=== PATIENT | male | born 1955 | race Caucasian/White ===

== ENCOUNTER 2019-09-07 15:16 | Inpatient (IN) | payer OTHER ==
[2019-09-07 18:15] LABS: Basophils % (Auto) 0.8 % (0.0-1.8); Eosinophils # (Auto) 0.1 K/mm3 (0.0-0.4); Eosinophils % (Auto) 1.8 % (0.0-4.3); Hematocrit 39.2 % (35.5-45.6); Hemoglobin 13.7 gm/dl (11.8-15.2); Lymphocytes # (Auto) 1.5 K/mm3 (1.2-5.4); Lymphocytes % (Auto) 27.9 % (13.4-35.0); Mean Corpuscular HGB Conc 35 % (32-34); Mean Corpuscular Volume 97 fl (84-94); Monocytes # (Auto) 0.6 K/mm3 (0.0-0.8); Monocytes % (Auto) 10.5 % (0.0-7.3); Platelet Count 234 K/mm3 (140-440); Red Blood Count 4.05 M/mm3 (3.65-5.03); Red Cell Distribution Width 13.4 % (13.2-15.2)
--- NOTE | 2019-09-07 18:17 | Consultation ---
History of Present Illness History of present illness: [facility] Date of Service:09/07/2019 17:38:19 Impression: RO Acute Ischemic Stroke Comments: dizziness, Right leg weakness R/O stroke Metrics: Last Known Well: 09/07/2019 15:15:00 [facility] Notification Time: 09/07/2019 17:37:22 Arrival Time: 09/07/2019 15:16:00 Stamp Time: 09/07/2019 17:38:19 Time First Login Attempt: 09/07/2019 17:41:23 Video Start Time: 09/07/2019 17:41:23 Symptoms: syncope, headache NIHSS Start Assessment Time: 09/07/2019 17:52:19 Patient is not a candidate for tPA. Patient was not deemed candidate for tPA thrombolytics because of Extensive discussion with pt and his on the phone about TPA and they did not want to proceed with TPA due to bleeding risk.. Video End Time: 09/07/2019 18:11:23 CT head showed no acute hemorrhage or acute core infarct. Advanced imaging was not obtained as the presentation was not suggestive of Large Vessel Occlusive Disease. Radiologist was not called back for review of advanced imaging because Not obtained. ER Physician notified of the decision on thrombolytics management on 09/07/2019 18:11:24 Our recommendations are outlined below. Recommendations: Activate Stroke Protocol Admission/Order Set Stroke/Telemetry Floor Neuro Checks Bedside Swallow Eval DVT Prophylaxis IV Fluids, Normal Saline Head of Bed Below 30 Degrees Euglycemia and Avoid Hyperthermia (PRN Acetaminophen) Start Antiplatelet Therapy Daily Recommended Scan: MRI Head Lipid Panel to Be Obtained, if Not Done in the Last Three Months Therapies: Physical Therapy, Occupational Therapy, Speech Therapy Assessment When Applicable Dysphaghia Screen: Swallow Evaluation, Bedside DVT prophylaxis: Choice of Primary Team Disposition: Follow up with Teleneurology Follow up Sign Out: Discussed with Emergency Department Provider History of Present Illness: Patient is a 64 year old Male. Patient was brought by EMS for symptoms of syncope, headache 64 YO M with h/o psychiatric illness who is involuntarily committed to a psych facility presented with dizziness and a fall. he started having a headache but states that the nurses at the facility would not listen to him and he felt dizzy and fell and hit his head. On arrival to ER here he was initially moving everything but then slowly started developing weakness in the right leg now he can not move at all. CT head showed no acute hemorrhage or acute core infarct. Examination: 1A: Level of Consciousness - Alert; keenly responsive+ 0 1B: Ask Month and Age - Both Questions Right+ 0 1C: Blink Eyes & Squeeze Hands - Performs Both Tasks+ 0 2: Test Horizontal Extraocular Movements - Normal+ 0 3: Test Visual Rankin - No Visual Loss+ 0 4: Test Facial Palsy (Use Grimace if Obtunded) - Normal symmetry+ 0 5A: Test Left Arm Motor Drift - No Drift for 10 Seconds+ 0 5B: Test Right Arm Motor Drift - No Drift for 10 Seconds+ 0 6A: Test Left Leg Motor Drift - No Drift for 5 Seconds+ 0 6B: Test Right Leg Motor Drift - No Effort Against [place]+ 3 7: Test Limb Ataxia (FNF/Heel-Rey) - No Ataxia+ 0 8: Test Sensation - Mild-Moderate Loss: Can Sense Being Touched+ 1 9: Test Language/Aphasia - Normal; No aphasia+ 0 10: Test Dysarthria - Normal+ 0 11: Test Extinction/Inattention - No abnormality+ 0 NIHSS Score:4 Patient was informed the Neurology Consult would happen via TeleHealth consult by way of interactive audio and video telecommunications and consented to receiving care in this manner. Due to the immediate potential for life-threatening deterioration due to underlying acute neurologic illness, I spent 35 minutes providing critical care. This time includes time for face to face visit via telemedicine, review of medical records, imaging studies and discussion of findings with providers, the patient and/or family. Dr Vignesh Rueda [facility] Medications and Allergies Allergies Allergy/AdvReac Type Severity Reaction Status Date / Time No Known Allergies Allergy Verified 09/07/19 15:37 Physical Examination - Vital Signs Vital Signs: Vital Signs Temp Pulse Resp BP Pulse Ox 98.5 F 76 16 147/81 98 09/07/19 15:37 09/07/19 15:37 09/07/19 15:37 09/07/19 15:37 09/07/19 15:37 Results - Laboratory Findings CBC and BMP: 09/07/19 18:06 Abnormal Lab Findings: Abnormal Labs 09/07/19 18:06 MCV 97 H MCH 34 H MCHC 35 H Floyd % (Auto) 10.5 H
--- NOTE | 2019-09-07 18:21 | Cat Scan Report ---
Nonenhanced CT scan of the brain: INDICATION / CLINICAL INFORMATION: 64 years Male; Stroke symptoms. TECHNIQUE: Routine CT head without contrast. All CT scans at this location are performed using CT dos e reduction for ALARA by means of automated exposure control. COMPARISON: None. FINDINGS: BRAIN / INTRACRANIAL CONTENTS: I do not see intracerebral hemorrhage or stroke mimics. No acute hemorrhage, mass effect, midline shift, hydrocephalus, or acute, large territorial infarct. Mild cortical involution is seen.. Normal brain volume and ventricular/sulcal size for age. No signif icant white matter abnormality. CRANIOCERVICAL JUNCTION: No significant abnormality. ORBITS: No significant abnormality of visualized orbits. SINUSES / MASTOIDS: Ethmoid air cells are opacified anteriorly bilaterally more on the left side. Muc osal thickening is seen in the inferior maxillary sinuses bilaterally more on the left side. ADDITIONAL FINDINGS: I do not see intracranial sequela from the trauma. IMPRESSION: I do not see intracerebral hemorrhage This exam was performed as part of a code stroke protocol. The exam was completed at [facility] on 09/07/2019 5:10 PM. The exam was reviewed at 5:12 PM and ER physician was notified at 5:14 PM. Signer Name: Marvin Schmidt MD Signed: 09/07/2019 6:16 PM Workstation Name: [email or web address]
--- NOTE | 2019-09-07 18:23 | Cat Scan Report ---
Exam: CT cervical spine History: fall, mild neck pain; Technique: Contiguous thin cut axial images obtained through the cervical spine. Sagittal and gupta l reconstructions performed by the technologist. All CT scans at this location are performed using CT dose reduction for ALARA by means of automated exposure control. Findings: No priors. There is no evidence of fracture or traumatic subluxation. I do not see vertebral compression fractur e. Prevertebral space is normal. In the transverse images, I do not see fracture involving the bony c anal. Vertebral bodies are normal in height and alignment. Disc spaces are narrowed at C3-C4, C4-C5 and C5-C6 levels. Bony spur is seen at C5-C6 disc level exte nding bilaterally narrowing the neural foramina. At C6-C7 disc level, bony spur is seen more towards the right side narrowing the right neural foramen. No significant degenerative change seen in the uncinate or facet joints. Surrounding soft tissues are grossly normal. Impression: No signs of acute bony trauma to the cervical spine. Signer Name: Marvin Schmidt MD Signed: 09/07/2019 6:19 PM Workstation Name: [id number]
[2019-09-07 18:29] LABS: Partial Thromboplastin Time 26.2 Sec. (24.2-36.6); Thrombin Time 15.3 Sec. (15.1-19.6)
[2019-09-07 18:36] LABS: Creatine Kinase MB < 1.0 ng/mL (0.0-4.0)
--- NOTE | 2019-09-07 18:44 | Emergency Department Report ---
ED Neuro Deficit HPI - General Chief Complaint: Syncope Stated Complaint: SYNCOPE/FALL Time Seen by Provider: 09/07/19 16:54 Source: patient Mode of arrival: Ambulatory Limitations: No Limitations - History of Present Illness Initial Comments: 64-year-old male with a past medical history of depression presents to the hospital from [facility] for syncope. Patient states he was admitted yesterday for acute alcohol intoxication. Patient denies daily alcohol intake. Patient expresses frustration that the [facility] or staff has not l istened to his concerns about his URI symptoms. Patient states he's been having sneezing, coughing, and phlegm production with generalized melees since yesterday. Symptoms worsened today. No documented fever but patient reports feeling feverish and having chills. Patient states he was seen today by provider who gave him several meds including an antibiotic for his illness. Patient continued to feel bad. While ambulating he felt lightheaded and passed out. Patient complains of a frontal headache today that started prior to passing out that is rated moderate to severe, constant, throbbing, associated lightheadedness and blurred distance vision. Patient states he typically wears glasses for reading only. Even though patient denies daily alcohol use he has been placed on a Tranexene taper at [place]. Patient spent a lot of time complaining about his care at [facility]. - Related Data Home Medications: Home Medications Medication Instructions Recorded Confirmed Last Taken Benzonatate [Tessalon Perles] 200 mg PO TID 09/07/19 09/07/19 Unknown Folic Acid [Folvite] 1 mg PO QDAY 09/07/19 09/07/19 Unknown Multivitamin [One Daily 1 each PO DAILY 09/07/19 09/07/19 Unknown Multivitamin] Thiamine [Vitamin B-1] 100 mg PO QDAY 09/07/19 09/07/19 Unknown Zithromax 250 mg PO DAILY 09/07/19 09/07/19 Unknown Allergies/Adverse Reactions: Allergies Allergy/AdvReac Type Severity Reaction Status Date / Time No Known Allergies Allergy Verified 09/07/19 15:37 ED Review of Systems ROS: Stated complaint: SYNCOPE/FALL Other details as noted in HPI Comment: All other systems reviewed and negative ED Past Medical Hx - Past Medical History Previous Medical History?: Yes Hx Psychiatric Treatment: Yes (depression) - Surgical History Past Surgical History?: No - Social History Smoking Status: Never Smoker Substance Use Type: None - Medications Home Medications: Home Medications Medication Instructions Recorded Confirmed Last Taken Type Benzonatate [Tessalon Perles] 200 mg PO TID 09/07/19 09/07/19 Unknown History Folic Acid [Folvite] 1 mg PO QDAY 09/07/19 09/07/19 Unknown History Multivitamin [One Daily 1 each PO DAILY 09/07/19 09/07/19 Unknown History Multivitamin] Thiamine [Vitamin B-1] 100 mg PO QDAY 09/07/19 09/07/19 Unknown History Zithromax 250 mg PO DAILY 09/07/19 09/07/19 Unknown History ED Neuro Physical Exam - General Limitations: No Limitations Suspected Stroke: Yes - NIHSS Assessment Interval: Baseline 1a. Level of Consciousness: alert/keenly responsive 1b. LOC Questions: answers both correctly 1c. LOC Commands: performs tasks correctly 2. Best Gaze: normal 3. Visual: no visual loss 4. Facial Palsy: normal symmetrical movement 5b. Motor Arm Right: no drift 5a. Motor Arm Left: no drift 6a. Motor Leg Left: no drift 6b. Motor Leg Right: no gravity effort 7. Limb Ataxia: absent 8. Sensory: mild/moderate sensory loss 9. Best Language: no aphasia 10. Dysarthria: normal 11. Extinction/Inattention: no abnormality Total Score: 4 Stroke Severity: Minor Stroke - Other Other exam information: General: No acute distress Head: Atraumatic Eyes: normal appearance ENT: Moist mucous membranes Neck: Normal appearance, no midline tenderness Chest: Clear to auscultation bilaterally CV: Regular rate and rhythm Abdomen: Soft, normal bowel sounds, nontender, nondistended, no rebound or guarding Back: Normal inspection Extremity: Normal inspection infection, full range of motion Neuro: Alert O x 3,see NIHSS Psych: Appropriate behavior Skin: No rash ED Course Vital Signs 09/07/19 09/07/19 09/07/19 15:37 19:10 19:20 Temperature 98.5 F Pulse Rate 76 77 Respiratory 16 17 16 Rate Blood Pressure 147/81 130/82 Blood Pressure [Left] O2 Sat by Pulse 98 Oximetry 09/07/19 09/07/19 09/07/19 19:22 19:23 19:50 Temperature 98.2 F Pulse Rate 75 Respiratory 14 15 16 Rate Blood Pressure Blood Pressure 126/76 [Left] O2 Sat by Pulse 99 Oximetry 09/07/19 09/07/19 09/07/19 19:53 20:00 21:00 Temperature Pulse Rate 79 Respiratory 16 19 17 Rate Blood Pressure 131/77 112/50 Blood Pressure [Left] O2 Sat by Pulse 96 93 Oximetry 09/07/19 09/07/19 09/08/19 23:00 23:12 00:00 Temperature Pulse Rate 74 71 77 Respiratory 21 21 15 Rate Blood Pressure 117/71 117/71 117/71 Blood Pressure [Left] O2 Sat by Pulse 93 94 96 Oximetry 09/08/19 09/08/19 09/08/19 02:00 03:00 03:10 Temperature Pulse Rate 70 74 Respiratory 12 12 Rate Blood Pressure 99/58 99/58 Blood Pressure 106/68 [Left] O2 Sat by Pulse 96 94 Oximetry 09/08/19 03:38 Temperature 97.8 F Pulse Rate 71 Respiratory 18 Rate Blood Pressure Blood Pressure 117/74 [Left] O2 Sat by Pulse 98 Oximetry - Consultations Consultation #1: 09/07/19 18:16 case d/w tel-neurology. suspect psychiatric cause, poor effort on exam. He discussed tpa with the pt and his . They declined tpa administration. - Lab Data Result diagrams: 09/08/19 05:44 09/08/19 05:44 Lab Results 09/07/19 09/07/19 09/07/19 Range/Units 18:06 18:06 18:06 WBC 5.5 (4.5-11.0) K/mm3 RBC 4.05 (3.65-5.03) M/mm3 Hgb 13.7 (11.8-15.2) gm/dl Hct 39.2 (35.5-45.6) % MCV 97 H (84-94) fl MCH 34 H (28-32) pg MCHC 35 H (32-34) % RDW 13.4 (13.2-15.2) % Plt Count 234 (140-440) K/mm3 Lymph % (Auto) 27.9 (13.4-35.0) % Potter % (Auto) 10.5 H (0.0-7.3) % Eos % (Auto) 1.8 (0.0-4.3) % Baso % (Auto) 0.8 (0.0-1.8) % Lymph # 1.5 (1.2-5.4) K/mm3 Potter # 0.6 (0.0-0.8) K/mm3 Eos # 0.1 (0.0-0.4) K/mm3 Baso # 0.0 (0.0-0.1) K/mm3 Seg Neutrophils % 59.0 (40.0-70.0) % Seg Neutrophils # 3.2 (1.8-7.7) K/mm3 PT 13.9 (12.2-14.9) Sec. INR 1.08 (0.87-1.13) APTT 26.2 (24.2-36.6) Sec. Thrombin Time 15.3 (15.1-19.6) Sec. Sodium (137-145) mmol/L Potassium (3.6-5.0) mmol/L Chloride (98-107) mmol/L Carbon Dioxide (22-30) mmol/L Anion Gap mmol/L BUN (9-20) mg/dL Creatinine (0.8-1.5) mg/dL Estimated GFR ml/min BUN/Creatinine Ratio % Glucose (75-100) mg/dL Calcium (8.4-10.2) mg/dL Total Bilirubin (0.1-1.2) mg/dL AST (5-40) units/L ALT (7-56) units/L Alkaline Phosphatase (35-129) units/L Total Creatine Kinase 36 L (55-170) units/L CK-MB (CK-2) < 1.0 (0.0-4.0) ng/mL CK-MB (CK-2) Rel Index 2.7 (0-4) Troponin T < 0.010 (0.00-0.029) ng/mL Total Protein (6.3-8.2) g/dL Albumin (3.9-5) g/dL Albumin/Globulin Ratio % Triglycerides (2-149) mg/dL Cholesterol (50-199) mg/dL LDL Cholesterol Direct (50-130) mg/dL HDL Cholesterol (40-59) mg/dL Cholesterol/HDL Ratio % 09/07/19 09/08/19 09/08/19 Range/Units Unknown 05:44 05:44 WBC 5.1 (4.5-11.0) K/mm3 RBC 3.97 (3.65-5.03) M/mm3 Hgb 13.3 (11.8-15.2) gm/dl Hct 38.6 (35.5-45.6) % MCV 97 H (84-94) fl MCH 34 H (28-32) pg MCHC 34 (32-34) % RDW 13.2 (13.2-15.2) % Plt Count 211 (140-440) K/mm3 Lymph % (Auto) 24.4 (13.4-35.0) % Potter % (Auto) 12.8 H (0.0-7.3) % Eos % (Auto) 3.5 (0.0-4.3) % Baso % (Auto) 0.9 (0.0-1.8) % Lymph # 1.2 (1.2-5.4) K/mm3 Potter # 0.6 (0.0-0.8) K/mm3 Eos # 0.2 (0.0-0.4) K/mm3 Baso # 0.0 (0.0-0.1) K/mm3 Seg Neutrophils % 58.4 (40.0-70.0) % Seg Neutrophils # 3.0 (1.8-7.7) K/mm3 PT 13.3 (12.2-14.9) Sec. INR 1.02 (0.87-1.13) APTT 26.3 (24.2-36.6) Sec. Thrombin Time (15.1-19.6) Sec. Sodium 139 (137-145) mmol/L Potassium 4.5 (3.6-5.0) mmol/L Chloride 102.4 (98-107) mmol/L Carbon Dioxide 26 (22-30) mmol/L Anion Gap 15 mmol/L BUN 9 (9-20) mg/dL Creatinine 0.7 L (0.8-1.5) mg/dL Estimated GFR > 60 ml/min BUN/Creatinine Ratio 13 % Glucose 98 (75-100) mg/dL Calcium 8.8 (8.4-10.2) mg/dL Total Bilirubin 0.40 (0.1-1.2) mg/dL AST 27 (5-40) units/L ALT 22 (7-56) units/L Alkaline Phosphatase 68 (35-129) units/L Total Creatine Kinase (55-170) units/L CK-MB (CK-2) (0.0-4.0) ng/mL CK-MB (CK-2) Rel Index (0-4) Troponin T (0.00-0.029) ng/mL Total Protein 5.9 L (6.3-8.2) g/dL Albumin 3.8 L (3.9-5) g/dL Albumin/Globulin Ratio 1.8 % Triglycerides (2-149) mg/dL Cholesterol (50-199) mg/dL LDL Cholesterol Direct (50-130) mg/dL HDL Cholesterol (40-59) mg/dL Cholesterol/HDL Ratio % 09/08/19 09/08/19 Range/Units 05:44 14:22 WBC (4.5-11.0) K/mm3 RBC (3.65-5.03) M/mm3 Hgb (11.8-15.2) gm/dl Hct (35.5-45.6) % MCV (84-94) fl MCH (28-32) pg MCHC (32-34) % RDW (13.2-15.2) % Plt Count (140-440) K/mm3 Lymph % (Auto) (13.4-35.0) % Potter % (Auto) (0.0-7.3) % Eos % (Auto) (0.0-4.3) % Baso % (Auto) (0.0-1.8) % Lymph # (1.2-5.4) K/mm3 Potter # (0.0-0.8) K/mm3 Eos # (0.0-0.4) K/mm3 Baso # (0.0-0.1) K/mm3 Seg Neutrophils % (40.0-70.0) % Seg Neutrophils # (1.8-7.7) K/mm3 PT (12.2-14.9) Sec. INR (0.87-1.13) APTT (24.2-36.6) Sec. Thrombin Time (15.1-19.6) Sec. Sodium 141 (137-145) mmol/L Potassium 3.8 (3.6-5.0) mmol/L Chloride 103.2 (98-107) mmol/L Carbon Dioxide 28 (22-30) mmol/L Anion Gap 14 mmol/L BUN 10 (9-20) mg/dL Creatinine 0.8 (0.8-1.5) mg/dL Estimated GFR > 60 ml/min BUN/Creatinine Ratio 13 % Glucose 97 (75-100) mg/dL Calcium 8.2 L (8.4-10.2) mg/dL Total Bilirubin (0.1-1.2) mg/dL AST (5-40) units/L ALT (7-56) units/L Alkaline Phosphatase (35-129) units/L Total Creatine Kinase (55-170) units/L CK-MB (CK-2) (0.0-4.0) ng/mL CK-MB (CK-2) Rel Index (0-4) Troponin T (0.00-0.029) ng/mL Total Protein (6.3-8.2) g/dL Albumin (3.9-5) g/dL Albumin/Globulin Ratio % Triglycerides 107 (2-149) mg/dL Cholesterol 154 (50-199) mg/dL LDL Cholesterol Direct 88 (50-130) mg/dL HDL Cholesterol 58 (40-59) mg/dL Cholesterol/HDL Ratio 2.65 % - EKG Data -: EKG Interpreted by Nv EKG shows normal: sinus rhythm, ST-T waves (no stemi) Rate: normal (70) - Radiology Data Radiology results: report reviewed Radiology Impressions Echocardiogram 09/08/19 13:38 Transthoracic Echocardiogram Indication: TIA BP: 115/70 HR: 72 Conclusions *The estimated ejection fraction is 55-60%. *Normal left ventricular diastolic filling is observed *The left atrial chamber size is normal. *The right atrial cavity size is normal. *The right ventricular cavity size is normal. *Normal right ventricular systolic function *No significant stenotic or regurgitant valvular abnormalities *Normal visualized aorta and inferior vena cava *No signifiant pericardial effusion *Intravenous saline contrast bubble study is indicative of a patent foramen ovale Findings Left Ventricle: The left ventricular chamber size is normal. There is no left ventricular hypertrophy. Global left ventricular wall motion and contractility are within normal limits. Global left ventricular systolic function is normal. The estimated ejection fraction is 55-60%. Left Atrium: The left atrial chamber size is normal. Right Ventricle: The right ventricular cavity size is normal. Right Atrium: The right atrial cavity size is normal. A patent foramen ovale is demonstrated by agitated saline contrast. Aortic Valve: The aortic valve structure is normal. There is no evidence of aortic regurgitation. Mitral Valve: The mitral valve leaflets appear normal. There is no evidence of mitral regurgitation. Tricuspid Valve: The tricuspid valve leaflets are normal. Pulmonic Valve: The pulmonic valve is not well visualized. Pericardium: There is no pericardial effusion. Venous: The inferior vena cava appears normal in size. Contrast: Intravenous agitated saline contrast was used to assess intracardiac shunting. Measurements Chambers 2D Name Value Normal Range IVSd (2D) 1.07 cm (0.6 - 1.1) LVPWd (2D) 1 cm (0.6 - 1.1) LVIDd (2D) 4.92 cm (3.7 - 5.6) LVIDs (2D) 3.56 cm (2 - 3.8) LV FS (2D) 27.57 % - EF Teichholz (2D) 53.37 % - Ao root diameter (2D) 3.31 cm (2 - 3.7) Volumes/Mass Name Value Normal Range LA ESV SP 4CH (A/L) 34.8 ml - LA ESV SP 2CH (A/L) 54.53 ml - LA ESV BP (A/L) 44.17 ml - LA ESV BP (A/L) index 44.17 ml/m2 - LA ESV SP 4CH (MOD) 32.45 ml - LA ESV SP 2CH (MOD) 51.98 ml - LA ESV BP (MOD) 41.51 ml - LA ESV BP (MOD) index 21.62 ml/m2 - Diastolic/Systolic Function Name Value Normal Range MV E-wave Vmax 0.5 m/sec - MV deceleration time 164.85 msec - MV A-wave Vmax 0.6 m/sec - MV E:A ratio 0.83 ratio - Aortic Valve Name Value Normal Range AV Vmax 1.25 m/sec - AV VTI 20.98 cm - AV peak gradient 6.22 mmHg - AV mean gradient 3.46 mmHg - LVOT diameter 2.29 cm - LVOT Vmax 1.12 m/sec - LVOT VTI 21.62 cm - LVOT peak gradient 5.02 mmHg - LVOT mean gradient 2.71 mmHg - SV LVOT 89.25 ml - NIMESH (continuity Vmax) 3.71 cm2 - NIMESH (continuity VTI) 4.25 cm2 - Pulmonic Valve/Qp:Qs Name Value Normal Range PV Vmax 0.78 m/sec - PV peak gradient 2.46 mmHg - PV acceleration time 106.57 msec - Exam: CT cervical spine History: fall, mild neck pain; Technique: Contiguous thin cut axial images obtained through the cervical spine. Sagittal and coronal reconstructions performed by the technologist. All CT scans at this location are performed using CT dose reduction for ALARA by means of automated exposure control. Findings: No priors. There is no evidence of fracture or traumatic subluxation. I do not see vertebral compression fracture. Prevertebral space is normal. In the transverse images, I do not see fracture involving the bony canal. Vertebral bodies are normal in height and alignment. Disc spaces are narrowed at C3-C4, C4-C5 and C5-C6 levels. Bony spur is seen at C5-C6 disc level extending bilaterally narrowing the neural foramina. At C6-C7 disc level, bony spur is seen more towards the right side narrowing the right neural foramen. No significant degenerative change seen in the uncinate or facet joints. Surrounding soft tissues are grossly normal. Impression: No signs of acute bony trauma to the cervical spine. Nonenhanced CT scan of the brain: INDICATION / CLINICAL INFORMATION: 64 years Male; Stroke symptoms. TECHNIQUE: Routine CT head without contrast. All CT scans at this location are performed using CT dose reduction for ALARA by means of automated exposure control. COMPARISON: None. FINDINGS: BRAIN / INTRACRANIAL CONTENTS: I do not see intracerebral hemorrhage or stroke mimics. No acute hemorrhage, mass effect, midline shift, hydrocephalus, or acute, large territorial infarct. Mild cortical involution is seen.. Normal brain volume and ventricular/sulcal size for age. No significant white matter abnormality. CRANIOCERVICAL JUNCTION: No significant abnormality. ORBITS: No significant abnormality of visualized orbits. SINUSES / MASTOIDS: Ethmoid air cells are opacified anteriorly bilaterally more on the left side. Mucosal thickening is seen in the inferior maxillary sinuses bilaterally more on the left side. ADDITIONAL FINDINGS: I do not see intracranial sequela from the trauma. IMPRESSION: I do not see intracerebral hemorrhage - Medical Decision Making Patient presented initially for URI symptoms and syncope while at rhythm with after receiving his medications for his URI symptoms including Z-Del. Patient did not present complaining of right-sided weakness. Right-sided weakness is identified initially during my examination and patient was also valuated by neurologist. Patient is neuro exam is inconsistent and seems to be effort dependent. TPA offered and declined. Patient will be admitted to the hospital for further definitive stroke workup such as MRI and syncope workup. As per MAR patient received azithromycin earlier today which will tx sinusitis - Differential Diagnosis arrhythmia, PR, anemia, CVA, intracerebral hemorrhage Critical Care Time: No Critical care attestation.: If time is entered above; I have spent that time in minutes in the direct care of this critically ill patient, excluding procedure time. ED Disposition Clinical Impression: Syncope, Right sided weakness, URI (upper respiratory infection) Sinusitis Qualifiers: Sinusitis location: ethmoidal Disposition: OP ADMIT IP TO THIS HOSP Is pt being admited?: Yes Condition: Stable Time of Disposition: 21:00
[2019-09-07 19:02] LABS: INR 1.08 (0.87-1.13)
[2019-09-07] MEDS ORDERED: KETOROLAC 30 MG/1 ML INJ IV ONE (19:05)
[2019-09-07] MEDS ORDERED: MORPHINE 4 MG/1 ML INJ IV ONE (19:05)
[2019-09-07] MEDS ORDERED: ONDANSETRON 4 MG/2 ML INJ IV ONE (19:05)
[2019-09-07 19:14] LABS: Albumin 3.8 g/dL (3.9-5); BUN/Creatinine Ratio 13; Blood Urea Nitrogen 9 mg/dL (9-20); Calcium 8.8 mg/dL (8.4-10.2); Hemolysis Index 98
[2019-09-07] MEDS ORDERED: ASPIRIN 325 MG TAB PO ONE (19:18)
[2019-09-07 19:19] LABS: Alanine Aminotransferase 22 units/L (7-56)
[2019-09-07] MEDS ORDERED: ACETAMINOPHEN 325 MG TAB PO PRN (22:06)
[2019-09-07] MEDS ORDERED: ONDANSETRON 4 MG/2 ML INJ IV PRN (22:06)
--- NOTE | 2019-09-08 02:17 | History and Physical Report ---
History of Present Illness Date of examination: 09/07/19 Date of admission: 09/07/19 22:06 Chief complaint: Syncope History of present illness: Patient is a 64-year-old white male was brought into the emergency room today with a complaint of syncope. He had earlier been seen at [facility] for what appeared to be agitation and alcohol detoxification. He had complained about the care he got at [facility]. He indicates he has been having some dizziness and some upper respiratory symptoms lately. He had gotten some prescription for upper respiratory infection. Past History Past Medical History: other (Prostate cancer, diverticulitis.) Past Surgical History: appendectomy, Other (Colonoscopy) Social history: smoking (1 pack/day), alcohol abuse (Drinks a lot of vodka) Family history: no significant family history Medications and Allergies Allergies Allergy/AdvReac Type Severity Reaction Status Date / Time No Known Allergies Allergy Verified 09/07/19 15:37 Home Medications Medication Instructions Recorded Confirmed Last Taken Type Benzonatate [Tessalon Perles] 200 mg PO TID 09/07/19 09/07/19 Unknown History Folic Acid [Folvite] 1 mg PO QDAY 09/07/19 09/07/19 Unknown History Multivitamin [One Daily 1 each PO DAILY 09/07/19 09/07/19 Unknown History Multivitamin] Thiamine [Vitamin B-1] 100 mg PO QDAY 09/07/19 09/07/19 Unknown History Zithromax 250 mg PO DAILY 09/07/19 09/07/19 Unknown History Active Meds: Active Medications Acetaminophen (Tylenol) 650 mg PO Q4H PRN PRN Reason: Pain MILD(1-3)/Fever >100.5/OG Aspirin (Ecotrin) 325 mg PO QDAY PATRICIA Sodium Chloride (Nacl 0.9% 1000 Ml) 1,000 mls @ 75 mls/hr IV DIRECT PATRICIA Levofloxacin/Dextrose (Levaquin 500mg/100ml) 500 mg in 100 mls @ 100 mls/hr IV Q24HR [facility]; Protocol Ondansetron HCl (Zofran) 4 mg IV Q8H PRN PRN Reason: Nausea And Vomiting Sodium Chloride (Sodium Chloride Flush Syringe 10 Ml) 10 ml IV BID [facility] Last Admin: 09/07/19 23:06 Dose: 10 ml Documented by: Sodium Chloride (Sodium Chloride Flush Syringe 10 Ml) 10 ml IV PRN PRN PRN Reason: LINE FLUSH Review of Systems Ears, nose, mouth and throat: nasal congestion, headache, other (Sneezing) Respiratory: congestion Neurological: weakness (Right lower extremity weakness), headaches, other (Dizziness) Exam - Constitutional Vitals: Temp Pulse Resp BP Pulse Ox 98.2 F 77 15 117/71 96 09/07/19 19:22 09/08/19 00:00 09/08/19 00:00 09/08/19 00:00 09/08/19 00:00 - EENT Eyes: Present: PERRL, EOM intact ENT: hearing intact, clear oral mucosa, dentition normal - Neck Neck: Present: supple, normal ROM - Respiratory Respiratory effort: normal Respiratory: bilateral: CTA - Cardiovascular Rhythm: regular Heart Sounds: Present: S1 & S2 - Extremities Extremities: no ischemia, pulses intact Peripheral Pulses: within normal limits - Abdominal General gastrointestinal: Present: soft, non-tender, non-distended Male genitourinary: Present: normal - Integumentary Integumentary: Present: clear, warm, dry - Musculoskeletal Musculoskeletal: right sided weakness (Right lower extremity weakness) - Psychiatric Psychiatric: appropriate mood/affect, intact judgment & insight - Neurologic Neurologic: CNII-XII intact, other (Strength in the right lower extremity is 1/5, all other extremities 5/5) Results - Labs CBC & Chem 7: 09/07/19 18:06 09/07/19 Unknown Labs: Abnormal lab results 09/07/19 09/07/19 09/07/19 Range/Units 18:06 18:06 Unknown MCV 97 H (84-94) fl MCH 34 H (28-32) pg MCHC 35 H (32-34) % [place] % (Auto) 10.5 H (0.0-7.3) % Creatinine 0.7 L (0.8-1.5) mg/dL Total Creatine Kinase 36 L (55-170) units/L Total Protein 5.9 L (6.3-8.2) g/dL Albumin 3.8 L (3.9-5) g/dL Assessment and Plan - Patient Problems (1) Syncope Current Visit: Yes Status: Acute Plan to address problem: Patient admitted and placed on telemetry. He has been evaluated by telemetry neurology. We will schedule neurology evaluation in the a.m. Meanwhile we will schedule patient for MRI of the brain. CT of the neck was negative. We will also monitor neurological status. (2) Sinusitis Current Visit: Yes Status: Acute Qualifiers: Sinusitis location: ethmoidal Plan to address problem: Patient placed on empiric IV antibiotics. He has been placed on IV Levaquin. (3) Right sided weakness Current Visit: Yes Status: Acute Plan to address problem: Etiology of the right-sided lower extremity weakness unclear. Patient has been scheduled for MRI of the brain. We will request a neurology evaluation in the a.m.
[2019-09-08] MEDS ORDERED: SODIUM CHLORIDE 0.9% 1000 ML 1,000 ML ONE (03:46)
[2019-09-08] MEDS: SODIUM CHLORIDE 0.9% 1000 ML 1,000 ML IV SCH (03:47)
[2019-09-08 06:30] LABS: Basophils % (Auto) 0.9 % (0.0-1.8); Eosinophils # (Auto) 0.2 K/mm3 (0.0-0.4); Eosinophils % (Auto) 3.5 % (0.0-4.3); Hematocrit 38.6 % (35.5-45.6); Hemoglobin 13.3 gm/dl (11.8-15.2); Lymphocytes # (Auto) 1.2 K/mm3 (1.2-5.4); Lymphocytes % (Auto) 24.4 % (13.4-35.0); Mean Corpuscular HGB Conc 34 % (32-34); Mean Corpuscular Volume 97 fl (84-94); Monocytes # (Auto) 0.6 K/mm3 (0.0-0.8); Monocytes % (Auto) 12.8 % (0.0-7.3); Platelet Count 211 K/mm3 (140-440); Red Blood Count 3.97 M/mm3 (3.65-5.03); Red Cell Distribution Width 13.2 % (13.2-15.2)
[2019-09-08 06:40] LABS: INR 1.02 (0.87-1.13)
[2019-09-08 06:41] LABS: Partial Thromboplastin Time 26.3 Sec. (24.2-36.6)
[2019-09-08 06:46] LABS: BUN/Creatinine Ratio 13; Blood Urea Nitrogen 10 mg/dL (9-20); Calcium 8.2 mg/dL (8.4-10.2); Hemolysis Index 7
[2019-09-08] MEDS: ASPIRIN EC 325 MG TAB PO SCH (09:40)
--- NOTE | 2019-09-08 10:55 | Magnetic Resonance Report ---
MRI BRAIN WITHOUT CONTRAST INDICATION / CLINICAL INFORMATION: Right-sided weakness. Stroke TECHNIQUE: Multisequence, multiplanar images were obtained. COMPARISON: CT head dated 09/07/2019 FINDINGS: CEREBRAL and CEREBELLAR HEMISPHERES: No evidence of mass or mass effect. No midline shift. No acute hemorrhage. No diffusion restriction to suggest acute infarct. No extra-axial fluid collection. VENTRICLES: Normal in size and configuration for age. VISUALIZED ORBITS: No significant abnormality. VISUALIZED PARANASAL SINUSES: Moderate mucosal thickening is noted in the ethmoid and maxillary sinus es. The remaining paranasal sinuses and mastoid air cells are adequately aerated. ADDITIONAL FINDINGS: None. IMPRESSION: Unremarkable MR brain without contrast. No acute intracranial process, hemorrhage or stroke. Signer Name: Dio Wolfe Jr, MD Signed: 09/08/2019 10:50 AM Workstation Name: [id number]
--- NOTE | 2019-09-08 11:43 | Progress Note ---
History Interval history: Syncope. CT scan of the head showed no acute hemorrhage or acute infarct. Continue PT Suicidal ideation. Patient presented from [facility] where he was involuntarily committed. Psychiatry consultation. Sinusitis. Continue antibiotics. Right lower extremity weakness/numbness. Unclear etiology. MRI and Neurology consultation pending. Hospitalist Physical - Constitutional Vitals: Temp Pulse Resp BP Pulse Ox 98.3 F 75 18 115/70 96 09/08/19 08:01 09/08/19 11:13 09/08/19 11:13 09/08/19 11:13 09/08/19 11:13 Results - Labs CBC & Chem 7: 09/08/19 05:44 09/08/19 05:44 Labs: Laboratory Last Values WBC 5.1 K/mm3 (4.5-11.0) 09/08/19 05:44 RBC 3.97 M/mm3 (3.65-5.03) 09/08/19 05:44 Hgb 13.3 gm/dl (11.8-15.2) 09/08/19 05:44 Hct 38.6 % (35.5-45.6) 09/08/19 05:44 MCV 97 fl (84-94) H 09/08/19 05:44 MCH 34 pg (28-32) H 09/08/19 05:44 MCHC 34 % (32-34) 09/08/19 05:44 RDW 13.2 % (13.2-15.2) 09/08/19 05:44 Plt Count 211 K/mm3 (140-440) 09/08/19 05:44 Lymph % (Auto) 24.4 % (13.4-35.0) 09/08/19 05:44 [place] % (Auto) 12.8 % (0.0-7.3) H 09/08/19 05:44 Eos % (Auto) 3.5 % (0.0-4.3) 09/08/19 05:44 Baso % (Auto) 0.9 % (0.0-1.8) 09/08/19 05:44 Lymph # 1.2 K/mm3 (1.2-5.4) 09/08/19 05:44 [place] # 0.6 K/mm3 (0.0-0.8) 09/08/19 05:44 Eos # 0.2 K/mm3 (0.0-0.4) 09/08/19 05:44 Baso # 0.0 K/mm3 (0.0-0.1) 09/08/19 05:44 Seg Neutrophils % 58.4 % (40.0-70.0) 09/08/19 05:44 Seg Neutrophils # 3.0 K/mm3 (1.8-7.7) 09/08/19 05:44 PT 13.3 Sec. (12.2-14.9) 09/08/19 05:44 INR 1.02 (0.87-1.13) 09/08/19 05:44 APTT 26.3 Sec. (24.2-36.6) 09/08/19 05:44 Thrombin Time 15.3 Sec. (15.1-19.6) 09/07/19 18:06 Sodium 141 mmol/L (137-145) 09/08/19 05:44 Potassium 3.8 mmol/L (3.6-5.0) 09/08/19 05:44 Chloride 103.2 mmol/L (98-107) 09/08/19 05:44 Carbon Dioxide 28 mmol/L (22-30) 09/08/19 05:44 Anion Gap 14 mmol/L 09/08/19 05:44 BUN 10 mg/dL (9-20) 09/08/19 05:44 Creatinine 0.8 mg/dL (0.8-1.5) 09/08/19 05:44 Estimated GFR > 60 ml/min 09/08/19 05:44 BUN/Creatinine Ratio 13 % 09/08/19 05:44 Glucose 97 mg/dL (75-100) 09/08/19 05:44 Calcium 8.2 mg/dL (8.4-10.2) L 09/08/19 05:44 Total Bilirubin 0.40 mg/dL (0.1-1.2) 09/07/19 Unknown AST 27 units/L (5-40) 09/07/19 Unknown ALT 22 units/L (7-56) 09/07/19 Unknown Alkaline Phosphatase 68 units/L (35-129) 09/07/19 Unknown Total Creatine Kinase 36 units/L (55-170) L 09/07/19 18:06 CK-MB (CK-2) < 1.0 ng/mL (0.0-4.0) 09/07/19 18:06 CK-MB (CK-2) Rel Index 2.7 (0-4) 09/07/19 18:06 Troponin T < 0.010 ng/mL (0.00-0.029) 09/07/19 18:06 Total Protein 5.9 g/dL (6.3-8.2) L 09/07/19 Unknown Albumin 3.8 g/dL (3.9-5) L 09/07/19 Unknown Albumin/Globulin Ratio 1.8 % 09/07/19 Unknown Active Medications - Current Medications Current Medications: Generic Name Dose Route Start Last Admin Trade Name Freq PRN Reason Stop Dose Admin Acetaminophen 650 mg 09/07/19 22:06 Tylenol PO Q4H PRN Pain MILD(1-3)/Fever >100.5/OG Aspirin 325 mg 09/08/19 10:00 09/08/19 09:40 Ecotrin PO 325 mg QDAY PATRICIA Administration Sodium Chloride 1,000 mls @ 75 mls/hr 09/07/19 23:00 09/08/19 03:47 Nacl 0.9% 1000 Ml IV 75 mls/hr DIRECT PATRICIA Administration Levofloxacin/Dextrose 500 mg in 100 mls @ 100 mls/hr 09/08/19 10:00 09/08/19 09:41 Levaquin 500mg/100ml IV 100 mls/hr Q24HR PATRICIA Administration Protocol Ondansetron HCl 4 mg 09/07/19 22:06 Zofran IV Q8H PRN Nausea And Vomiting Sodium Chloride 10 ml 09/07/19 23:00 09/08/19 11:11 Sodium Chloride Flush Syringe 10 Ml IV 10 ml BID PATRICIA Administration Sodium Chloride 10 ml 09/07/19 22:06 Sodium Chloride Flush Syringe 10 Ml IV PRN PRN LINE FLUSH
--- NOTE | 2019-09-08 13:20 | Consultation ---
History of Present Illness Consult date: 09/08/19 Reason for Consult: Right sided weakness Chief complaint: Right sided weakness History of present illness: Patient is a 64 y/o man w/ a h/o depression. He was admitted at a psychiatric facility last week. The patient states that he had received some bad news last week, which prompted him to start drinking alcohol from Sunday to Sunday of last week. His reportedly became concerned with his behavior, and called a social insurance specialist and the police, who recommended that patient be involuntarily admitted to psychiatric facility. While at the facility, patient stated that he was having URTI symptoms for 1-2 days, including headache, runny nose, cough. He went to the nursing counter to request medication for his headache, and while walking down the [place], he was feeling dizzy. Patient then fell and hit his head. He states that he was not completely unconscious when he fell, as he was able to hear those around him and understand what they were saying. He regained full consciousness within 1 minutes. During the episode, he did not have any loss of bowel/bladder control, or tongue biting. He denies any previous history of similar episodes. Patient was noted to have right sided weakness and numbness on arrival at ER. He was offered tPA, however refused it, due to risk of bleeding. Patient states that today, his right sided weakness and numbness have resolved completely, and he is back to baseline. Past History Past Medical History: other (Prostate cancer, diverticulitis.) Past Surgical History: appendectomy, Other (Colonoscopy) Social history: smoking (1 pack/day), alcohol abuse (Drinks a lot of vodka) Family history: no significant family history Medications and Allergies Allergies Allergy/AdvReac Type Severity Reaction Status Date / Time No Known Allergies Allergy Verified 09/07/19 15:37 Home Medications Medication Instructions Recorded Confirmed Last Taken Type Benzonatate [Tessalon Perles] 200 mg PO TID 09/07/19 09/07/19 Unknown History Folic Acid [Folvite] 1 mg PO QDAY 09/07/19 09/07/19 Unknown History Multivitamin [One Daily 1 each PO DAILY 09/07/19 09/07/19 Unknown History Multivitamin] Thiamine [Vitamin B-1] 100 mg PO QDAY 09/07/19 09/07/19 Unknown History Zithromax 250 mg PO DAILY 09/07/19 09/07/19 Unknown History Active Meds: Active Medications Acetaminophen (Tylenol) 650 mg PO Q4H PRN PRN Reason: Pain MILD(1-3)/Fever >100.5/OG Aspirin (Ecotrin) 325 mg PO QDAY [facility] Last Admin: 09/08/19 09:40 Dose: 325 mg Documented by: Sodium Chloride (Nacl 0.9% 1000 Ml) 1,000 mls @ 75 mls/hr IV DIRECT [facility] Last Admin: 09/08/19 03:47 Dose: 75 mls/hr Documented by: Levofloxacin/Dextrose (Levaquin 500mg/100ml) 500 mg in 100 mls @ 100 mls/hr IV Q24HR [facility]; Protocol Last Admin: 09/08/19 09:41 Dose: 100 mls/hr Documented by: Ondansetron HCl (Zofran) 4 mg IV Q8H PRN PRN Reason: Nausea And Vomiting Sodium Chloride (Sodium Chloride Flush Syringe 10 Ml) 10 ml IV BID [facility] Last Admin: 09/08/19 11:11 Dose: 10 ml Documented by: Sodium Chloride (Sodium Chloride Flush Syringe 10 Ml) 10 ml IV PRN PRN PRN Reason: LINE FLUSH Review of Systems All systems: negative Neurological: weakness, numbness, syncope Physical Examination - Vital Signs Vital Signs: Vital Signs Temp Pulse Resp BP Pulse Ox 98.5 F 76 16 147/81 98 09/07/19 15:37 09/07/19 15:37 09/07/19 15:37 09/07/19 15:37 09/07/19 15:37 - Physical Exam Narrative exam: Patient is awake, alert, oriented x4, follows complex commands. PERRL, EOMI, VFF, tongue midline, no facial weakness noted, b/l intact to LT. No dysarthria or aphasia noted. 5/5 strength in all extremities. 2+ reflexes throughout. B/l intact to FTN and HTS. B/l intact to LT. - Constitutional General appearance: comfortable - EENT EENT: Present: ATNC, PERRL, mucous membranes moist, hearing intact, vision intact - Respiratory Respiratory: Present: lungs clear, normal breath sounds - Cardiovascular Cardiovascular: Present: regular rate, normal S1, normal S2 Extremities: Present: no clubbing, cyanosis, no inflammation - Gastrointestinal Gastrointestinal: Present: normoactive bowel sounds, soft, non-tender - Integumentary Integumentary: Present: normal - Musculoskeletal Musculoskeletal: Present: no fluid collection, no pain - Psychiatric Psychiatric: Present: mood/affect appropriate - Level of Consciousness 1a. Level of Consciousness: alert/keenly responsive - LOC Questions 1b. LOC Questions: answers both correctly - LOC Command 1c. LOC Commands: performs tasks correctly - Best Gaze 2. Best Gaze: normal - Visual 3. Visual: no visual loss - Facial Palsy 4. Facial Palsy: normal symmetrical movement - Motor Arm 5a. Motor Arm Left: no drift 5b. Motor Arm Right: no drift - Motor Leg 6a. Motor Leg Left: no drift 6b. Motor Leg Right: no drift - Limb Ataxia 7. Limb Ataxia: absent - Sensory 8. Sensory: normal - Best Language 9. Best Language: no aphasia - Dysarthria 10. Dysarthria: normal - Extinction and Inattention 11. Extinction/Inattention: no abnormality - Scoring Total Score: 0 Stroke Severity: No Stroke Symptoms Results - Laboratory Findings CBC and BMP: 09/08/19 05:44 09/08/19 05:44 Abnormal Lab Findings: Abnormal Labs 09/07/19 09/07/19 09/07/19 18:06 18:06 Unknown MCV 97 H MCH 34 H MCHC 35 H [place] % (Auto) 10.5 H Creatinine 0.7 L Calcium Total Creatine Kinase 36 L Total Protein 5.9 L Albumin 3.8 L 09/08/19 09/08/19 05:44 05:44 MCV 97 H MCH 34 H MCHC [place] % (Auto) 12.8 H Creatinine Calcium 8.2 L Total Creatine Kinase Total Protein Albumin Assessment and Plan Patient is a 64 y/o man w/ a h/o depression, who p/w right sided weakness/numbness, which resolved within 24 hours. According to the patient's clinical findings, it is possible that the patient has had a TIA. Alternatively, he may have conversion disorder. Plan: 1. TIA vs. conversion d/o - MRI brain did not reveal any evidence of stroke - CT head did not show any acute changes - check MRA head/neck - Check echo - Check Lipid profile - Cont. ASA - patient's symptoms now resolved - PT/OT - Telemetry monitoring while in house - DVT Ppx: recommend lovenox - Recommend psychiatry consult for possible conversion d/o, as patient endorses that he has been under increased stress recently. 2. Blood pressure: - Recommend normotension, as no evidence of infarct on MRI - Will continue to monitor. Thank you for allowing me to take part in the care of this patient. Manoj Do MD Neurology
[2019-09-08 15:03] LABS: Chol/HDL Ratio 2.65 %
--- NOTE | 2019-09-08 16:52 | Magnetic Resonance Report ---
MR MRA/MRV head wo con INDICATION / CLINICAL INFORMATION: 64 years Male; TIA. TECHNIQUE: 3-D time of flight. NASCET type criteria used to evaluate stenoses. COMPARISON: None available. FINDINGS: INTERNAL CAROTID ARTERIES: No significant narrowing appreciated. VERTEBROBASILAR SYSTEM: No significant narrowing appreciated. DISTAL BRANCHES: Distal branches of the anterior, middle, and posterior cerebral arteries are fairly symmetric in appearance and number. Focal area of minimal narrowing is seen near the origin of the A1 segment. Minimal narrowing suggested at the P1-2 junction on the right. ANEURYSM: None identified. IMPRESSION: Areas of minimal narrowing identified, as described above. Signer Name: Armen Caraballo MD, III Signed: 09/08/2019 4:47 PM Workstation Name: [id number]
--- NOTE | 2019-09-08 16:54 | Magnetic Resonance Report ---
MR MRA/MRV neck wo con INDICATION / CLINICAL INFORMATION: 64 years Male; TIA. Right-sided weakness TECHNIQUE: 2-D time of flight performed prior to contrast. NASCET criteria used for stenosis evaluati on. COMPARISON: None available. FINDINGS: ARCH: Aortic arch and proximal great vessels are not well visualized on this exam. CAROTID ARTERIES: The visualized common and internal carotid arteries are widely patent. VERTEBRAL ARTERIES: Slight left dominant vertebral system seen. No significant stenosis appreciated. IMPRESSION: No significant stenosis appreciated on this unenhanced MRA of the neck. Signer Name: Armen Caraballo MD, III Signed: 09/08/2019 4:50 PM Workstation Name: [id number]
[2019-09-09] MEDS: SODIUM CHLORIDE 0.9% 1000 ML 1,000 ML IV SCH ×2 (05:16→21:45)
[2019-09-09] MEDS: guaiFENesin 100 MG/5 ML ORAL LIQD PO PRN ×2 (09:32→21:45)
[2019-09-09] MEDS: ASPIRIN EC 325 MG TAB PO SCH (09:33)
--- NOTE | 2019-09-09 17:10 | Progress Note ---
Assessment and Plan Assessment and plan: Syncope - Severe workup negative - CT, MRI, MRA head, MRA neck and echo unremarkable - No syncopal episode after admission Suicidal ideation. Patient presented from [facility] where he was invo luntarily committed. Psychiatry consultation. Patient is on 1017 Sinusitis. Continue antibiotics. Right lower extremity weakness/numbness. Unclear etiology. MRI is negative, neurologist thinks conversion disorder. patient said symptoms resolved Disposition; patient is medically cleared and pending psych evaluation. History Interval history: Patient was seen and evaluated this morning, patient was alert and oriented. Calm and cooperative. No weakness. Hospitalist Physical - Physical exam Narrative exam: Not in cardiopulmonary distress. The patient appeared well nourished and normally developed. Vital signs as documented. Head exam is unremarkable. No scleral icterus . Neck is without jugular venous distension, thyromegaly, or carotid bruits. Lungs are clear to auscultation. Cardiac exam reveals regular rate and Rhythm. First and second heart sounds normal. No murmurs, rubs or gallops. Abdominal exam reveals normal bowel sounds, no masses, no organomegaly and no aortic enlargement. Extremities are nonedematous and both femoral and pedal pulses are normal. 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 No focal weakness. - Constitutional Vitals: Temp Pulse Resp BP Pulse Ox 98.1 F 75 18 129/85 98 09/09/19 07:37 09/09/19 08:00 09/09/19 07:37 09/09/19 07:37 09/09/19 08:00 Results - Labs CBC & Chem 7: 09/08/19 05:44 09/08/19 05:44 Labs: Laboratory Last Values WBC 5.1 K/mm3 (4.5-11.0) 09/08/19 05:44 RBC 3.97 M/mm3 (3.65-5.03) 09/08/19 05:44 Hgb 13.3 gm/dl (11.8-15.2) 09/08/19 05:44 Hct 38.6 % (35.5-45.6) 09/08/19 05:44 MCV 97 fl (84-94) H 09/08/19 05:44 MCH 34 pg (28-32) H 09/08/19 05:44 MCHC 34 % (32-34) 09/08/19 05:44 RDW 13.2 % (13.2-15.2) 09/08/19 05:44 Plt Count 211 K/mm3 (140-440) 09/08/19 05:44 Lymph % (Auto) 24.4 % (13.4-35.0) 09/08/19 05:44 [place] % (Auto) 12.8 % (0.0-7.3) H 09/08/19 05:44 Eos % (Auto) 3.5 % (0.0-4.3) 09/08/19 05:44 Baso % (Auto) 0.9 % (0.0-1.8) 09/08/19 05:44 Lymph # 1.2 K/mm3 (1.2-5.4) 09/08/19 05:44 [place]ies # 0.6 K/mm3 (0.0-0.8) 09/08/19 05:44 Eos # 0.2 K/mm3 (0.0-0.4) 09/08/19 05:44 Baso # 0.0 K/mm3 (0.0-0.1) 09/08/19 05:44 Seg Neutrophils % 58.4 % (40.0-70.0) 09/08/19 05:44 Seg Neutrophils # 3.0 K/mm3 (1.8-7.7) 09/08/19 05:44 PT 13.3 Sec. (12.2-14.9) 09/08/19 05:44 INR 1.02 (0.87-1.13) 09/08/19 05:44 APTT 26.3 Sec. (24.2-36.6) 09/08/19 05:44 Thrombin Time 15.3 Sec. (15.1-19.6) 09/07/19 18:06 Sodium 141 mmol/L (137-145) 09/08/19 05:44 Potassium 3.8 mmol/L (3.6-5.0) 09/08/19 05:44 Chloride 103.2 mmol/L (98-107) 09/08/19 05:44 Carbon Dioxide 28 mmol/L (22-30) 09/08/19 05:44 Anion Gap 14 mmol/L 09/08/19 05:44 BUN 10 mg/dL (9-20) 09/08/19 05:44 Creatinine 0.8 mg/dL (0.8-1.5) 09/08/19 05:44 Estimated GFR > 60 ml/min 09/08/19 05:44 BUN/Creatinine Ratio 13 % 09/08/19 05:44 Glucose 97 mg/dL (75-100) 09/08/19 05:44 POC Glucose 85 (70-105) 09/07/19 17:48 Calcium 8.2 mg/dL (8.4-10.2) L 09/08/19 05:44 Total Bilirubin 0.40 mg/dL (0.1-1.2) 09/07/19 Unknown AST 27 units/L (5-40) 09/07/19 Unknown ALT 22 units/L (7-56) 09/07/19 Unknown Alkaline Phosphatase 68 units/L (35-129) 09/07/19 Unknown Total Creatine Kinase 36 units/L (55-170) L 09/07/19 18:06 CK-MB (CK-2) < 1.0 ng/mL (0.0-4.0) 09/07/19 18:06 CK-MB (CK-2) Rel Index 2.7 (0-4) 09/07/19 18:06 Troponin T < 0.010 ng/mL (0.00-0.029) 09/07/19 18:06 Total Protein 5.9 g/dL (6.3-8.2) L 09/07/19 Unknown Albumin 3.8 g/dL (3.9-5) L 09/07/19 Unknown Albumin/Globulin Ratio 1.8 % 09/07/19 Unknown Triglycerides 107 mg/dL (2-149) 09/08/19 14:22 Cholesterol 154 mg/dL (50-199) 09/08/19 14:22 LDL Cholesterol Direct 88 mg/dL (50-130) 09/08/19 14:22 HDL Cholesterol 58 mg/dL (40-59) 09/08/19 14:22 Cholesterol/HDL Ratio 2.65 % 09/08/19 14:22 Active Medications - Current Medications Current Medications: Generic Name Dose Route Start Last Admin Trade Name Freq PRN Reason Stop Dose Admin Acetaminophen 650 mg 09/07/19 22:06 09/09/19 09:33 Tylenol PO 650 mg Q4H PRN Administration Pain MILD(1-3)/Fever >100.5/OG Aspirin 325 mg 09/08/19 10:00 09/09/19 09:33 Ecotrin PO 325 mg QDAY PATRICIA Administration Atorvastatin Calcium 40 mg 09/09/19 22:00 Lipitor PO QHS PATRICIA Guaifenesin 200 mg 09/08/19 22:25 09/09/19 09:32 Robitussin PO 200 mg Q4H PRN Administration Cough Sodium Chloride 1,000 mls @ 75 mls/hr 09/07/19 23:00 09/09/19 05:16 Nacl 0.9% 1000 Ml IV 75 mls/hr DIRECT PATRICIA Administration Levofloxacin/Dextrose 500 mg in 100 mls @ 100 mls/hr 09/08/19 10:00 09/09/19 09:34 Levaquin 500mg/100ml IV 100 mls/hr Q24HR PATRICIA Administration Protocol Ondansetron HCl 4 mg 09/07/19 22:06 Zofran IV Q8H PRN Nausea And Vomiting Sodium Chloride 10 ml 09/07/19 23:00 09/08/19 21:47 Sodium Chloride Flush Syringe 10 Ml IV 10 ml BID PATRICIA Administration Sodium Chloride 10 ml 09/07/19 22:06 Sodium Chloride Flush Syringe 10 Ml IV PRN PRN LINE FLUSH
--- NOTE | 2019-09-09 18:02 | Progress Note ---
Assessment and Plan Patient is a 64 y/o man w/ a h/o depression, who p/w right sided weakness/numbness, which resolved within 24 hours. According to the patient's clinical findings, it is possible that the patient has had a TIA. Alternatively, he may have conversion disorder. Plan: 1. TIA vs. conversion d/o - MRI brain did not reveal any evidence of stroke - CT head did not show any acute changes - MRA head/neck did not reveal any significant stenosis - Echo: EF 55-60%, bubble study positive, LA normal size - LDL 88. Cont. statin. Goal LDL <70. - Cont. ASA - patient's symptoms resolved - Counselled on smoking cessation. - PT/OT - Telemetry monitoring while in house - DVT Ppx: recommend lovenox - Recommend psychiatry consult for possible conversion d/o, as patient endorses that he has been under increased stress recently. - Recommend for patient to follow up with neurology outpatient in 3-4 weeks. 2. Blood pressure: - Recommend normotension, as no evidence of infarct on MRI - Will sign off, as neurologic workup is complete, and treatment plan is in place. Please call with any questions. Thank you for allowing me to take part in the care of this patient. Manoj Do MD Neurology Subjective Date of service: 09/09/19 Principal diagnosis: TIA Interval history: No acute events overnight. Objective - Exam Narrative Exam: Patient is awake, alert, oriented x4, follows complex commands. PERRL, EOMI, VFF, tongue midline, no facial weakness noted, b/l intact to LT. No dysarthria or aphasia noted. 5/5 strength in all extremities. 2+ reflexes throughout. B/l intact to FTN and HTS. B/l intact to LT. - Vital Sign Vital Signs - 12hr 09/09/19 09/09/19 07:37 08:00 Temperature 98.1 F Pulse Rate 70 Pulse Rate [ 75 Apical] Respiratory 18 Rate Blood Pressure 129/85 O2 Sat by Pulse 98 98 Oximetry - General Apperance Constitutional: comfortable - EENT EENT: ATNC, PERRL, mucous membranes moist, hearing intact, vision intact - Respiratory Respiratory: lungs clear, normal breath sounds - Cardiovascular Cardiovascular: regular rate, normal S1, normal S2 Extremities: no clubbing, cyanosis, no inflammation - Gastrointestinal Gastrointestinal: normoactive bowel sounds, soft, non-tender - Integumentary Integumentary: normal - Musculoskeletal Musculoskeletal: no fluid collection, no pain - Psychiatric Psychiatric: mood/affect appropriate - Laboratory Findings CBC and BMP: 09/08/19 05:44 09/08/19 05:44 Abnormal Lab Findings: Abnormal Labs 09/07/19 09/07/19 09/07/19 18:06 18:06 Unknown MCV 97 H MCH 34 H MCHC 35 H [place] % (Auto) 10.5 H Creatinine 0.7 L Calcium Total Creatine Kinase 36 L Total Protein 5.9 L Albumin 3.8 L 09/08/19 09/08/19 05:44 05:44 MCV 97 H MCH 34 H MCHC [place] % (Auto) 12.8 H Creatinine Calcium 8.2 L Total Creatine Kinase Total Protein Albumin
[2019-09-10 04:19] VITALS: BP 125/76
[2019-09-10] MEDS: guaiFENesin 100 MG/5 ML ORAL LIQD PO PRN (05:52)
--- NOTE | 2019-09-10 09:44 | Event Note ---
Date: 09/10/19 64-year-old male was admitted from [facility] for weakness, and was evaluated for CVA. workup was negative and patient is medically stable for discharge. for
--- NOTE | 2019-09-10 09:53 | Discharge Summary ---
Providers - Providers Date of Admission: 09/08/19 15:37 Attending physician: YUN DWYER MD 09/07/19 22:06 Consult to Physician [CONS] Routine Comment: Consulting Provider: GABY LANDON Physician Instructions: Reason For Exam: right sided weakness 09/08/19 07:41 Occupational Therapy Evaluate and Treat [CONS] Routine Comment: Reason For Exam: rt side weakness Physical Therapy Evaluation and Treat [CONS] Routine Comment: Reason For Exam: rt side weakness 09/09/19 08:09 Consult to Mental Health [CONS] Routine Reason For Exam: conversion disorder Place consult to:: psych Notified:: yes Phone number called:: [phone] Was contact made?: Yes If yes, spoke with:: Glendy Time called:: 09:12 [facility] Reason for admission: right sided weakness and numbness, convesion disorder Condition: Stable Pertinent studies: MRI, MRA, CT head; unremarkable Carotid Doppler and echo; unremarkable Hospital course: 64-year-old white male was brought into the emergency room today with a complaint of syncope. He had earlier been seen at [facility] for what appeared to be agitation and alcohol detoxification. He had complained about the care he got at [facility]. He indicates he has been having some dizziness and some upper respiratory symptoms lately. He had gotten some prescription for upper respiratory infection. Patient is admitted to the floor and stroke workup was done and negative for CVA. Patient was admitted on 1013. When I evaluated him patient didn't have any dizziness, numbness or focal neurologic deficit. Patient was seen by neurology and is diagnosed as conversion disorder. Patient was medically stable. Psych cleared him for discharge is advised to follow-up at [facility] clinic. patient was hemodynamically stable at the time of discharge. Disposition: -01 TO HOME OR SELFCARE Time spent for discharge: 32 minutes - Discharge Diagnoses (1) Conversion disorder Status: Acute (2) Right sided weakness Status: Acute (3) Sinusitis Status: Acute Qualifiers: Sinusitis location: ethmoidal (4) Syncope Status: Acute (5) URI (upper respiratory infection) Status: Acute Core Measure Documentation - Palliative Care Palliative Care/ Comfort Measures: Not Applicable - Core Measures Any of the following diagnoses?: none Exam - Physical Exam Narrative exam: Not in cardiopulmonary distress. The patient appeared well nourished and normally developed. Vital signs as documented. Head exam is unremarkable. No scleral icterus . Neck is without jugular venous distension, thyromegaly, or carotid bruits. Lungs are clear to auscultation. Cardiac exam reveals regular rate and Rhythm. First and second heart sounds normal. No murmurs, rubs or gallops. Abdominal exam reveals normal bowel sounds, no masses, no organomegaly and no aortic enlargement. Extremities are nonedematous and both femoral and pedal pulses are normal. ACTUARIAL ANALYST: Alert and oriented 3. No focal weakness. - Constitutional Vitals: Temp Pulse Resp BP Pulse Ox 97.6 F 61 18 125/76 98 09/10/19 04:17 09/10/19 04:17 09/10/19 04:17 09/10/19 04:17 09/09/19 20:00 Plan Activity: no restrictions Weight Bearing Status: Full Weight Bearing Diet: regular Follow up with: ADDISON DANIELLE MD [Primary Care Provider] - 3-5 Days Prescriptions: AtorvaSTATin [Lipitor] 40 mg PO QHS #30 tablet Aspirin EC 325 mg PO QDAY #30 tablet Azithromycin [Zithromax TAB] 250 mg PO QDAY #6 tablet
[2019-09-10] MEDS: ASPIRIN EC 325 MG TAB PO SCH (10:34)
--- NOTE | 2019-09-10 14:08 | Consultation ---
History of Present Illness - Reason for Consult Consult date: 09/10/19 Reason for consult: Initial Psychiatric Evaluation - Chief Complaint Chief complaint: Right sided weakness/numbness - History of Present Psychiatric Illness Patient is a 64-year-old male with a past medical history of major depression disorder presents to the hospital from [facility] for syncope. Patient states he was admitted yesterday for acute alcohol intoxication. Today the patient is calm and cooperative during the assessment. and sister in law are at the bedside. Initially, patient was admitted to [facility] on 09-06-2019 for alcohol intoxication. He states Sunday of last week he relapsed on alcohol after he received some disturbing news in regards to his finances. He states, " it started out with wine and then progressed to vodka." Per patient he had been sober from alcohol for 8 weeks. Currently, he denies any withdrawal symptoms. He reports appropriate energy, appetite, and sleep. He denies SI/HI's, A/VH's, and delusions. Current Psychiatric Medications: Wellbutrin XL 150mg po QAM- compliant with medication. Past Psychiatric History: MDD (2014); 1 previous inpatient psychiatric hospitalization ( [facility]) - 2018; no outpatient psychiatrist; Internal medicine doctor prescribes patient Wellbutrin; no past suicide attempts. Drug/Alcohol Abuse: Alcohol - recently relapsed on alcohol. Patient had been sober for 8 weeks; last drink 09/09/19; first drink - " age 20" . Patient denies other drug use. History of Trauma/Abuse: Patient denies trauma; Patient denies sexual, physical, and mental abuse. 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 Family History of Psychiatric Illness/ Substance: Patient denies. Medications and Allergies Allergies Allergy/AdvReac Type Severity Reaction Status Date / Time No Known Allergies Allergy Verified 09/07/19 15:37 Home Medications Medication Instructions Recorded Confirmed Last Taken Type Benzonatate [Tessalon Perles] 200 mg PO TID 09/07/19 09/07/19 Unknown History Folic Acid [Folvite] 1 mg PO QDAY 09/07/19 09/07/19 Unknown History Multivitamin [One Daily 1 each PO DAILY 09/07/19 09/07/19 Unknown History Multivitamin] Thiamine [Vitamin B-1] 100 mg PO QDAY 09/07/19 09/07/19 Unknown History Aspirin EC 325 mg PO QDAY #30 tablet 09/10/19 Unknown Rx AtorvaSTATin [Lipitor] 40 mg PO QHS #30 tablet 09/10/19 Unknown Rx Azithromycin [Zithromax TAB] 250 mg PO QDAY #6 tablet 09/10/19 Unknown Rx Active Meds: Active Medications Acetaminophen (Tylenol) 650 mg PO Q4H PRN PRN Reason: Pain MILD(1-3)/Fever >100.5/OG Last Admin: 09/09/19 09:33 Dose: 650 mg Documented by: Aspirin (Ecotrin) 325 mg PO QDAY [facility] Last Admin: 09/10/19 10:34 Dose: 325 mg Documented by: Atorvastatin Calcium (Lipitor) 40 mg PO QHS [facility] Last Admin: 09/09/19 21:45 Dose: 40 mg Documented by: Guaifenesin (Robitussin) 200 mg PO Q4H PRN PRN Reason: Cough Last Admin: 09/10/19 05:52 Dose: 200 mg Documented by: Sodium Chloride (Nacl 0.9% 1000 Ml) 1,000 mls @ 75 mls/hr IV DIRECT [facility] Last Admin: 09/09/19 21:45 Dose: 75 mls/hr Documented by: Levofloxacin/Dextrose (Levaquin 500mg/100ml) 500 mg in 100 mls @ 100 mls/hr IV Q24HR [facility]; Protocol Last Admin: 09/10/19 10:34 Dose: 100 mls/hr Documented by: Ondansetron HCl (Zofran) 4 mg IV Q8H PRN PRN Reason: Nausea And Vomiting Sodium Chloride (Sodium Chloride Flush Syringe 10 Ml) 10 ml IV BID [facility] Last Admin: 09/10/19 10:35 Dose: 10 ml Documented by: Sodium Chloride (Sodium Chloride Flush Syringe 10 Ml) 10 ml IV PRN PRN PRN Reason: LINE FLUSH Mental Status Exam - Vital signs Last Vital Signs Temp 97.6 F 09/10/19 04:17 Pulse 70 09/10/19 11:00 Resp 20 09/10/19 08:00 BP 125/76 09/10/19 04:17 Pulse Ox 99 09/10/19 08:00 - Exam Narrative exam: Mental Status Exam: Appearance: calm, cooperative Behavior: regular eye contact Speech: regular rate and regular tone Mood: "I feel good"; euthymic Affect: congruent to mood Thought Process: organized Thought Content: denies SI/HI's, A/VH's, and delusions Motor Activity: ambulatory Cognition: A/O x 3 Insight: fair Judgment: fair Results Result Diagrams: 09/08/19 05:44 09/08/19 05:44 All other labs normal. Assessment and Plan Assessment and plan: Impression: PPHx MDD and Alcohol Use Disorder, moderate without withdrawal symptoms. Today the patient is calm and cooperative during the assessment. He denies SI/HI's, A/VH's, delusions, and withdrawal symptoms. Per /patient he has no access to weapons. Recommendation/Plan: 1. Will rescind 1013. Patient does not meet criteria. 2. Will continue home medications. Patient reports that he does not need a prescription for Wellbutrin. Patient reports home supply. 3. Patient informed to abstain from drug/alcohol use. Recommended AA/IOP meetings nearest to his home. Disposition: Patient informed to follow-up with internal medicine doctor for mental health referral. In the meantime, patient will follow-up at the [facility]. Will staff with Dr. Javier.
== END 2019-09-10 15:00 | disposition home or self-care (01) | DRG 880 ==
LOC: ED 15:16 → 4A 22:06 → OBSVTOIN 09-08 15:37
PROVIDERS: ADMIT Internal Medicine Geriatric Medicine; ATTEND Internal Medicine
DX: F44.4 Conversion disorder with motor symptom or deficit (principal); F17.210 Nicotine dependence, cigarettes, uncomplicated; F32.9 Major depressive disorder, single episode, unspecified; R55 Syncope and collapse; J06.9 Acute upper respiratory infection, unspecified; J32.2 Chronic ethmoidal sinusitis; W18.39XA Other fall on same level, initial encounter; F10.10 Alcohol abuse, uncomplicated; Y90.9 Presence of alcohol in blood, level not specified; Z71.6 Tobacco abuse counseling; Z85.46 Personal history of malignant neoplasm of prostate; Y92.128 Other place in nursing home as the place of occurrence of the external cause; Y99.8 Other external cause status; Z90.49 Acquired absence of other specified parts of digestive tract; Y93.89 Activity, other specified
CPT/HCPCS: 36415; 70450; 70544; 70547; 70551; 72125; 80048; 80053; 80061; 82550; 82553; 82962; 84484; 85025; 85610; 85670; 85730; 93005; 93010; 93306; 96374; 99406; G0378; A9270-GY; J1885; J1956; J2270; J2405; J7030